=== PATIENT | female | born 1955 | race American Indian/Alaskan Native ===

== ENCOUNTER → 2019-07-04 | Day surgery (SDC) | payer OTHER ==
--- NOTE | 2019-07-07 13:20 | PATH ---
Cytology Non-Gynecological Report Patient Name: GEORGE MILLER [facility]. Rec. #: [id number] /Age/Gender: 1955 (Age: 64) / F Account: [id number] Location: RADIOLOGY INTER Taken: 07/04/2019 Received: 07/04/2019 Reported: 07/07/2019 Physicians: Nan Trejo M.D. Specimen(s) Received RIGHT THYROID FNA Clinical History Right thyroid lobe, 1.90 x 1.09 x 1.24 cm Final Diagnosis THYROID, RIGHT, FINE NEEDLE ASPIRATION: SATISFACTORY FOR EVALUATION. BETHESDA CLASS II: BENIGN. CYTOLOGIC FINDINGS SHOW A BENIGN FOLLICULAR NODULE WITH FEATURES CONSISTENT WITH CHRONIC LYMPHOCYTIC THYROIDITIS. FOLLICULAR CELLS WITH METAPLASTIC AND REACTIVE CHANGES DISPERSED CLUSTERS AND AGGREGATES IN A BACKGROUND OF NUMEROUS LYMPHOCYTES, LYMPHOHISTIOCYTIC AGGREGATES, AND LYMPHOID TANGLES PRESENT. Comment: Suggest clinical/radiologic and serologic correlation. Electronically Signed Aileen Meyer M.D. Gross Description Received are eight direct smears, four of which are air-dried and Diff-Quik stained, and four of which are alcohol fixed and Pap stained. Also received is 20 ml of bloody formalin from which one cellblock is prepared.
== END | disposition home or self-care (01) ==
LOC: JRADIR 08:26
PROVIDERS: ATTEND Specialist
PROC: 0G9H3ZX Drainage of Right Thyroid Gland Lobe, Percutaneous Approach, Diagnostic (ICD-10-PCS; principal; 2019-07-04)
DX: E04.1 Nontoxic single thyroid nodule (principal)
CPT/HCPCS: 76942

== ENCOUNTER → 2019-07-11 | Day surgery (SDC) | payer OTHER ==
--- NOTE | 2019-07-13 14:59 | PATH ---
Cytology Non-Gynecological Report Patient Name: GEORGE MILLER [facility]. Rec. #: [id number] /Age/Gender: 1955 (Age: 64) / F Account: [id number] Location: RADIOLOGY INTER Taken: 07/11/2019 Received: 07/11/2019 Reported: 07/13/2019 Physicians: Nan Velasco M.D. Specimen(s) Received LEFT THYROID FNA Clinical History Left lobe thyroid, 2.65 x 1.19 x 1.33 cm Final Diagnosis THYROID, LEFT, FINE NEEDLE ASPIRATION: SATISFACTORY FOR EVALUATION. BETHESDA CLASS II: BENIGN. CYTOLOGIC FINDINGS SHOW A BENIGN FOLLICULAR NODULE WITH FEATURES CONSISTENT WITH CHRONIC LYMPHOCYTIC THYROIDITIS. FOLLICULAR CELLS WITH FOCAL REACTIVE/METAPLASTIC CHANGES IN A BACKGROUND OF LYMPHOCYTES, LYMPHOHISTIOCYTIC AGGREGATES, AND LYMPHOID TANGLES PRESENT. Comment: Suggest clinical/radiologic and serologic correlation. Prior material is noted. Electronically Signed Aileen Meyer M.D. Gross Description Received are eight direct smears, four of which are air-dried and Diff-Quik stained, and four of which are alcohol fixed and Pap stained. Also received is 20 ml of bloody formalin from which one cellblock is prepared.
== END | disposition home or self-care (01) ==
LOC: JRADIR 09:47
PROVIDERS: ATTEND Specialist
PROC: 0G9K3ZX Drainage of Thyroid Gland, Percutaneous Approach, Diagnostic (ICD-10-PCS; principal; 2019-07-11)
DX: E06.3 Autoimmune thyroiditis (principal)
CPT/HCPCS: 76942; 88173; 88305-TC